=== PATIENT | male | born 1990 | race Caucasian/White ===

== ENCOUNTER 2020-09-26 00:29 | Inpatient (IN) | payer OTHER, SELFPAY ==
[2020-09-26 01:04] LABS: pH, Arterial 7.05 (7.35-7.45)
[2020-09-26] MEDS ORDERED: Dextrose 5% in Water 1,000 ML IV PRN (01:04)
[2020-09-26] MEDS ORDERED: Insulin Regular 300 UNITS/3 ML VIAL SC PRN (01:04)
[2020-09-26] MEDS ORDERED: hydrALAZINE 20 MG/ML VIAL SLOW IVP PRN (01:04)
[2020-09-26] MEDS ORDERED: Ondansetron PF 4 MG/2 ML Vial IVP PRN (01:04)
[2020-09-26 01:05] LABS: CO2 Tension 71.9 mmHg (35.0-45.0); O2 Tension (PaO2), arterial 78.2 mmHg (80.0-100.0)
[2020-09-26 01:06] LABS: Actual Bicarbonate (HCO3a) 19.4 mEq/L (22-28); Base Excess (BEa) -12.6 mEq/L (-2.0 to +3.0); Carboxyhemoglobin (COHb) 0.1 gm% (0.0-3.0); Hemoglobin (Hb) 16.7 g/dL (14.0-18.0); Potassium - ABG Lab 3.24 mmol/L (3.70-5.30)
[2020-09-26 01:07] LABS: ALV-art Gradient 544.925 mmHg (0-20); Analyzer IN Cardio ER; Calcium, Ionized (arterial) 1.15 mmol/L (1.12-1.30); Puncture Site RRA
[2020-09-26 01:08] LABS: #Eosinphils 0.1 thou/uL (0.0-0.7); #Lymphocytes 0.8 thou/uL (1.20-3.40); #Monocytes 0.5 thou/uL (0.11-0.59); #Neutrophils 5.7 thou/uL (1.40-6.50); %Basophils 0.3 % (0.0-1.0); %Eosinophils 0.9 % (0.0-10.0); %Lymphocytes 11.6 % (21.0-51.0); %Monocytes 7.3 % (0.0-10.0); %Neutrophils 79.8 % (42.0-75.0); Hemoglobin 15.9 g/dL (14.0-18.0); Mean Corpuscular Hemoglobin 28.5 pg (27.0-31.0); Mean Corpuscular Volume 86.4 fL (78.0-98.0); Mean Platelet Volume 6.4 fL (7.4-10.4); Platelet Count 246 thou/uL (130-400); RBC Distribution Width 11.9 % (11.5-14.5); Red Blood Cell (RBC) Count 5.58 mill/uL (4.70-6.10); White Blood Cell (WBC) Count 7.1 thou/uL (4.8-10.8)
[2020-09-26] MEDS ORDERED: Sodium Bicarb 50 MEQ/50 ML Abboject 8.4% SYRINGE ONE ×3 (01:10→03:18)
[2020-09-26 01:12] LABS: Prothrombin Time 23.2 sec (12.0-14.7)
[2020-09-26] MEDS ORDERED: Sodium Chloride 0.9% 1,000 ML IV SCH ×2 (01:15→03:15)
[2020-09-26 01:23] LABS: Magnesium 3.7 mg/dL (1.6-2.6); Phosphorus 7.1 mg/dL (2.3-4.7)
[2020-09-26 01:25] LABS: ALT (SGPT) 126 U/L (8-55); AST (SGOT) 202 U/L (5-34); Albumin 3.4 g/dL (3.5-5.0); Alkaline Phosphatase 133 U/L (40-110); Anion Gap 14 mmol/L (10-20); BUN (Urea Nitrogen) 26 mg/dL (8.9-20.6); Calc. Creatinine Clearance 0 mL/min (70-130); Calcium 7.3 mg/dL (7.8-10.44); Carbon Dioxide 20 mmol/L (22-29); Chloride 101 mmol/L (98-107); Globulin 2.8 g/dL (2.4-3.5); Glucose 77 mg/dL (70-105); Potassium 3.2 mmol/L (3.5-5.1); Protein, Total 6.2 g/dL (6.0-8.3); Sodium 132 mmol/L (136-145)
[2020-09-26 02:12] LABS: CKMB 81.1 ng/mL (0-6.6)
[2020-09-26] MEDS ORDERED: Potassium Chloride 40 MEQ in Premix Bag 1 BAG IVPB SCH (02:15)
[2020-09-26] MEDS ORDERED: EPINEPHrine 4 MG in Dextrose 5% in Water 250 ML IV SCH (02:15)
[2020-09-26 02:22] LABS: SARS-CoV-2 NAA Rapid Test Not Detected (NotDetected)
[2020-09-26 03:05] LABS: Actual Bicarbonate (HCO3a) 19.7 mEq/L (22-28); Base Excess (BEa) -10.1 mEq/L (-2.0 to +3.0); CO2 Tension 59.4 mmHg (35.0-45.0); Calcium, Ionized (arterial) 1.16 mmol/L (1.12-1.30); Carboxyhemoglobin (COHb) 0.3 gm% (0.0-3.0); Hemoglobin (Hb) 15.7 g/dL (14.0-18.0); O2 Tension (PaO2), arterial 72.2 mmHg (80.0-100.0); Potassium - ABG Lab 3.34 mmol/L (3.70-5.30)
[2020-09-26 03:07] LABS: Puncture Site LFA; pH, Arterial 7.14 (7.35-7.45)
[2020-09-26] MEDS: Sodium Chloride 0.9% 1,000 ML IV SCH ×2 (03:14→04:09)
[2020-09-26] MEDS ORDERED: Sodium Bicarb 50 MEQ/50 ML Abboject 8.4% SYRINGE IVP SCH ×2 (03:15→03:30)
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
[2020-09-26 03:25] VITALS: BMI 13.6
[2020-09-26] MEDS: Sodium Bicarb 50 MEQ/50 ML Abboject 8.4% SYRINGE ONE (03:34)
[2020-09-26] MEDS ORDERED: Levothyroxine Sodium 400 MCG in Sodium Chloride 0.9% 100 ML IVPB SCH (03:45)
[2020-09-26 04:06] LABS: Bacteria/HPF None Seen HPF (None Seen); Bilirubin Negative (Negative); Blood, Urine 3+ (Negative); Clarity Turbid (Clear); Glucose, Urine (Dipstick) Normal (Negative); Ketone, Urine Negative (Negative); Leukocyte Negative Leu/uL (Negative); Nitrite Negative (Negative); Protein, Urine (Dipstick) 30 mg/dL (Neg-Trace); Squamous Epithelial 0-3 HPF (0-3); Urobilinogen Normal mg/dL (Less than 2); pH, Urine 5.5 (5.0-9.0)
[2020-09-26 04:08] LABS: Urine Culture Reflex Yes Yes
[2020-09-26 04:21] LABS: Amphetamine Detected (NotDetected); Barbiturates Screen Not Detected (NotDetected); Benzodiazepine Screen Not Detected (NotDetected); Cocaine Metabolite Screen Not Detected (NotDetected); Medtox Control Line Valid? VALID (VALID); Medtox Reader # READER 4; Methadone Not Detected (NotDetected); Methamphetamine Detected (NotDetected); Opiate Screen Not Detected (NotDetected); Oxycodone Screen Not Detected (NotDetected); Phencyclidine (PCP) Not Detected (NotDetected); THC/Cannabinoid Screen Detected (NotDetected); Tricyclic Screen Not Detected (NotDetected)
[2020-09-26] MEDS: Dextrose 50% Abboject 50 ML SYRINGE SLOW IVP PRN ×2 (04:31→05:10)
[2020-09-26 05:14] LABS: #Lymphocytes 0.6 thou/uL (1.20-3.40); #Monocytes 0.9 thou/uL (0.11-0.59); #Neutrophils 6.6 thou/uL (1.40-6.50); %Basophils 0.2 % (0.0-1.0); %Eosinophils 0.3 % (0.0-10.0); %Lymphocytes 7.6 % (21.0-51.0); %Monocytes 10.5 % (0.0-10.0); %Neutrophils 81.5 % (42.0-75.0); Hemoglobin 13.5 g/dL (14.0-18.0); Mean Corpuscular HGB CONC 33.1 g/dL (32.0-36.0); Mean Corpuscular Hemoglobin 28.6 pg (27.0-31.0); Mean Corpuscular Volume 86.2 fL (78.0-98.0); Mean Platelet Volume 6.7 fL (7.4-10.4); Platelet Count 152 thou/uL (130-400); RBC Distribution Width 11.8 % (11.5-14.5); Red Blood Cell (RBC) Count 4.74 mill/uL (4.70-6.10); White Blood Cell (WBC) Count 8.1 thou/uL (4.8-10.8)
[2020-09-26] MEDS ORDERED: Hydrocortisone Sod Succ/PF 100 mg/2 ml Vial IVP SCH ×2 (05:15→12:00)
[2020-09-26 05:27] LABS: Lactic Acid 2.4 mmol/L (0.5-2.2)
[2020-09-26] MEDS: Dextrose 5 % And 0.9 % NaCl 1,000 ML IV SCH ×2 (05:30→12:00)
[2020-09-26 05:39] LABS: ALT (SGPT) 108 U/L (8-55); AST (SGOT) 202 U/L (5-34); Albumin 2.8 g/dL (3.5-5.0); Alkaline Phosphatase 75 U/L (40-110); Anion Gap 9 mmol/L (10-20); BUN (Urea Nitrogen) 25 mg/dL (8.9-20.6); Calc. Creatinine Clearance 29 mL/min (70-130); Calcium 6.7 mg/dL (7.8-10.44); Carbon Dioxide 27 mmol/L (22-29); Chloride 107 mmol/L (98-107); Globulin 2.1 g/dL (2.4-3.5); Glucose 74 mg/dL (70-105); Phosphorus 4.1 mg/dL (2.3-4.7); Potassium 3.1 mmol/L (3.5-5.1); Protein, Total 4.9 g/dL (6.0-8.3); Sodium 140 mmol/L (136-145)
[2020-09-26 05:56] LABS: Troponin I 70.095 ng/mL (< 0.028)
[2020-09-26] MEDS ORDERED: Lactated Ringer's 1,000 ML IV SCH (06:15)
[2020-09-26] MEDS: Norepinephrine 8 MG/0.9% NS 250 ML IVPB SCH ×2 (06:23→11:19)
--- NOTE | 2020-09-26 07:47 | RAD ---
EXAM: CHEST ONE VIEW HISTORY: Evaluation of endotracheal tube and nasogastric tube placement. COMPARISON: Study obtained at [facility] on 09/25/2020 FINDINGS: Endotracheal tube remains in place overlying the T3-4 level and above the level of the sunita. Nasoga stric tube is also stable in position with tip overlying expected location of the gastric fundus. There are now increased parenchymal opacities involving the midlung zones and each lung base greater on the right with could be related to pneumonia or aspiration pneumonitis. There is suggestion of a small left pleural effusion. No other interval change. IMPRESSION: 1. Parenchymal airspace opacities within the lungs bilaterally which have increased compared to prior study especially on the right. These findings could be related to pneumonia or aspiration pneumonitis and/or atelectasis. 2. Suggestion of small left pleural effusion. 3. Endotracheal tube and nasogastric tube in place.
[2020-09-26] MEDS ORDERED: Famotidine/PF 20 mg/2ml Vial SLOW IVP SCH (09:00)
[2020-09-26 09:07] LABS: Hemoglobin 13.7 g/dL (14.0-18.0); Mean Corpuscular HGB CONC 32.2 g/dL (32.0-36.0); Mean Corpuscular Hemoglobin 28.1 pg (27.0-31.0); Mean Corpuscular Volume 87.3 fL (78.0-98.0); Mean Platelet Volume 6.8 fL (7.4-10.4); Platelet Count 132 thou/uL (130-400); Red Blood Cell (RBC) Count 4.87 mill/uL (4.70-6.10); White Blood Cell (WBC) Count 16.6 thou/uL (4.8-10.8)
[2020-09-26 09:36] LABS: Actual Bicarbonate (HCO3a) 23.3 mEq/L (22-28); Base Excess (BEa) -6.9 mEq/L (-2.0 to +3.0); Calcium, Ionized (arterial) 1.04 mmol/L (1.12-1.30); Carboxyhemoglobin (COHb) 0.3 gm% (0.0-3.0); Hemoglobin (Hb) 14.3 g/dL (14.0-18.0); Potassium - ABG Lab 3.52 mmol/L (3.70-5.30)
[2020-09-26 09:37] LABS: pH, Arterial 7.15 (7.35-7.45)
[2020-09-26 09:38] LABS: O2 Tension (PaO2), arterial 34.3 mmHg (80.0-100.0)
[2020-09-26 09:39] LABS: Puncture Site RRA
[2020-09-26 09:53] LABS: Band 44 % (5-11); Lymphocytes 6 % (21-51); MDiff Complete? YES; Metamyelocyte 8 % (0-0); Monocytes 12 % (0-10); Neutrophil 30 % (42-75); Platelet Morphology Comment Appears Adequate; RBC Morphology Normal; Reflex for Review?? YES; Vacuoles SLIGHT
[2020-09-26 10:00] LABS: Anion Gap 15 mmol/L (10-20); BUN (Urea Nitrogen) 25 mg/dL (8.9-20.6); Calc. Creatinine Clearance 32 mL/min (70-130); Calcium 6.9 mg/dL (7.8-10.44); Carbon Dioxide 20 mmol/L (22-29); Chloride 110 mmol/L (98-107); Glucose 91 mg/dL (70-105); Magnesium 2.8 mg/dL (1.6-2.6); Phosphorus 5.2 mg/dL (2.3-4.7); Potassium 3.5 mmol/L (3.5-5.1); Sodium 141 mmol/L (136-145)
[2020-09-26] MEDS ORDERED: Calcium Chloride 1 GM/10 ML Abboject SYRINGE IVP SCH (10:45)
[2020-09-26] MEDS ORDERED: Albumin 5% 500 ML ONE (10:52)
--- NOTE | 2020-09-26 11:16 | RAD ---
Exam: Chest one view HISTORY:Left central line placement Comparison: 09/26/2020 FINDINGS: Lines and tubes: Endotracheal tube at the level clavicles. Left sided subclavian vascular catheter is presumed to be in the superior vena cava. Nasogastric tube extends beyond the diaphragm. Cardiac silhouette: Normal Aorta: Unremarkable Pulmonary vessels: Small bilateral effusions Costophrenic angles: Clear LUNGS: Right basal lung parenchymal opacities, increased since the previous exam. Pneumothorax: None Osseous abnormalities: None IMPRESSION: 1. Improved aeration of the lung parenchyma. Bibasilar pleural and parenchymal changes do remain.
--- NOTE | 2020-09-26 13:14 | NM ---
NUCLEAR MEDICINE BRAIN EXAMINATION/CEREBRAL BLOOD FLOW STUDY HISTORY: Clinical brain COMPARISON: CT brain 09/25/2020 TECHNIQUE: A nuclear medicine cerebral blood flow study was performed after administration of 29.1mCi of technetium 99m HMPAO. Angiographic and delayed phase images were performed. FINDINGS: There is lack of intracranial flow on the angiographic and delayed phase images. IMPRESSION: Findings are consistent with brain
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
[2020-09-27] MEDS ORDERED: Famotidine/PF 20 mg/2ml Vial SLOW IVP SCH (09:00)
== END 2020-09-26 14:38 | disposition expired | DRG 91 ==
LOC: ERS 00:29 → IMCU/EMU 01:04
PROVIDERS: ADMIT Specialist; ATTEND Specialist
PROC: 02HV33Z Insertion of Infusion Device into Superior Vena Cava, Percutaneous Approach (ICD-10-PCS; principal; 2020-09-26)
PROC: 04HY32Z Insertion of Monitoring Device into Lower Artery, Percutaneous Approach (ICD-10-PCS; 2020-09-26)
DX: G93.1 Anoxic brain damage, not elsewhere classified (principal); J69.0 Pneumonitis due to inhalation of food and vomit; Z66 Do not resuscitate; Z20.822 Contact with and (suspected) exposure to COVID-19; I46.9 Cardiac arrest, cause unspecified; S06.9X9S Unspecified intracranial injury with loss of consciousness of unspecified duration, sequela; V03.90XS Pedestrian on foot injured in collision with car, pick-up truck or van, unspecified whether traffic or nontraffic accident, sequela
CPT/HCPCS: 31624; 36415; 36416; 36600; 71045; 78610; 80053; 80306; 80307; 81001; 82533; 82553; 82805; 83605; 83735; 84100; 84484; 85025; 85060; 85610; 85730; 86850; 86900; 86901; 87086; 94002; 94003; 94640; 96365; 96368; 96374; A9521; G0390; J0171; J1720; J3480; J3490; J7070; J7620; P9045; S0028; U0002

== ENCOUNTER 2020-09-26 14:38 | Day surgery (SDC) | payer OTHER ==
[2020-09-26 15:36] LABS: CO2 Tension 45.8 mmHg (35.0-45.0); Calcium, Ionized (arterial) 1.11 mmol/L (1.12-1.30); Carboxyhemoglobin (COHb) 0.3 gm% (0.0-3.0); Hemoglobin (Hb) 12.9 g/dL (14.0-18.0); O2 Tension (PaO2), arterial 267.4 mmHg (80.0-100.0); Potassium - ABG Lab 4.05 mmol/L (3.70-5.30); pH, Arterial 7.26 (7.35-7.45)
[2020-09-26 15:37] LABS: Puncture Site Arterial Line
[2020-09-26] MEDS ORDERED: Phytonadione 10 MG/ML AMP SLOW IVP SCH (16:30)
[2020-09-26] MEDS ORDERED: Dextrose 5 %-0.45 % NaCl 1,000 ML IV SCH (16:30)
[2020-09-26] MEDS ORDERED: Hydrocortisone Sod Succ/PF 500 mg/4 ml Vial SLOW IVP SCH (16:30)
[2020-09-26] MEDS ORDERED: Norepinephrine 8 MG/0.9% NS 250 ML IVPB SCH (16:30)
[2020-09-26] MEDS: Vasopressin 20 UNIT, Admixture Fee 1 EACH in Sodium Chloride 0.9% 50 ML IV SCH (16:46)
[2020-09-26 17:28] VITALS: BMI 29.9
[2020-09-26] MEDS: Piperacillin/Tazobactam 3.375 GM in Sodium Chloride 0.9% 100 ML IVPB SCH ×2 (17:40→23:34)
--- NOTE | 2020-09-26 18:03 | RAD ---
Chest AP view INDICATION: History of pneumonia COMPARISON: September 26, 2020 chest radiograph at 10:42 AM FINDINGS: Lungs: There is persistent bilateral lower lobe airspace disease. Patient remains intubated. Cardiac silhouette: There is accentuation of the heart size due to the same technique. Pulmonary vasculature: Normal Pleural spaces: No pleural effusion or pneumothorax is demonstrated. Upper abdomen: Gastric catheter is unchanged. Osseous structures: No acute osseous abnormality. Additional findings: Left subclavian central venous catheter is unchanged in position. IMPRESSION: Stable bilateral lower lobe airspace disease suspicious for pneumonia or aspiration. Stable tubes and lines. No pneumothorax.
[2020-09-26 18:39] LABS: Bilirubin Negative (Negative); Blood, Urine 3+ (Negative); Clarity Turbid (Clear); Glucose, Urine (Dipstick) Normal (Negative); Ketone, Urine Negative (Negative); Leukocyte Negative Leu/uL (Negative); Nitrite Negative (Negative); Protein, Urine (Dipstick) 20 mg/dL (Neg-Trace); Specific Gravity, Urine 1.019 (1.002-1.036); Squamous Epithelial 0-3 HPF (0-3); Urobilinogen Normal mg/dL (Less than 2); WBC/HPF 0-3 HPF (0-3)
[2020-09-26] MEDS: Phytonadione 10 MG in Sodium Chloride 0.9% 50 ML IVPB SCH ×2 (18:45→22:45)
[2020-09-26 18:48] LABS: INR-International Normal Ratio 1.7; PTT 35.1 sec (22.9-36.1); Prothrombin Time 20.7 sec (12.0-14.7)
[2020-09-26 18:55] LABS: Bacteria/HPF Rare-Few HPF (None Seen)
[2020-09-26 19:11] LABS: Hemoglobin A1c 5.2 % (4.0-6.0); Lactic Acid 2.5 mmol/L (0.5-2.2)
[2020-09-26 19:12] LABS: Phosphorus 5.3 mg/dL (2.3-4.7)
[2020-09-26 19:15] LABS: Bilirubin, Direct 0.3 mg/dL (0.1-0.3); Bilirubin, Total 0.5 mg/dL (0.2-1.2)
[2020-09-26 19:18] LABS: ALT (SGPT) 97 U/L (8-55); AST (SGOT) 154 U/L (5-34); Albumin 2.9 g/dL (3.5-5.0); Alkaline Phosphatase 61 U/L (40-110); Anion Gap 11 mmol/L (10-20); BUN (Urea Nitrogen) 20 mg/dL (8.9-20.6); Bilirubin, Total 0.5 mg/dL (0.2-1.2); Calc. Creatinine Clearance 97 mL/min (70-130); Calcium 6.9 mg/dL (7.8-10.44); Carbon Dioxide 20 mmol/L (22-29); Chloride 115 mmol/L (98-107); Gamma GT (GGT) 70 U/L (12-64); Glucose 183 mg/dL (70-105); Lipase 8 U/L (8-78); Magnesium 2.4 mg/dL (1.6-2.6); Potassium 4.1 mmol/L (3.5-5.1); Protein, Total 4.9 g/dL (6.0-8.3); Sodium 142 mmol/L (136-145)
[2020-09-26 19:24] LABS: Critical Call Chem Troponin I RESULT DECREASING
[2020-09-26 19:26] LABS: Band 44 % (5-11); Hemoglobin 11.9 g/dL (14.0-18.0); Lymphocytes 10 % (21-51); MDiff Complete? YES; Mean Corpuscular HGB CONC 32.8 g/dL (32.0-36.0); Mean Corpuscular Hemoglobin 28.5 pg (27.0-31.0); Mean Corpuscular Volume 86.8 fL (78.0-98.0); Mean Platelet Volume 7.3 fL (7.4-10.4); Monocytes 2 % (0-10); Myelocyte 8 % (0-0); Neutrophil 34 % (42-75); Platelet Count 100 thou/uL (130-400); Platelet Morphology Comment Appears Decreased; RBC Distribution Width 11.9 % (11.5-14.5); RBC Morphology Normal; Reactive Lymphocytes 2 % (0-10); Red Blood Cell (RBC) Count 4.18 mill/uL (4.70-6.10); White Blood Cell (WBC) Count 14.3 thou/uL (4.8-10.8)
[2020-09-26 19:30] LABS: CK (CPK) 7672 U/L (30-200)
[2020-09-26] MEDS: Albuterol Sulfate 2.5 mg/0.5 ml Neb NEB SCH ×2 (19:30→22:30)
[2020-09-26 19:44] LABS: CKMB 55.7 ng/mL (0-6.6); Critical Call CKMB RESULT DECREASING
[2020-09-26] MEDS ORDERED: Albumin 25% 25 GM/100 ML BOT IVPB SCH (20:30)
[2020-09-26] MEDS: Levothyroxine Sodium 400 MCG in Sodium Chloride 0.9% 100 ML IVPB SCH (20:47)
[2020-09-26] MEDS: Sodium Chloride 0.45% 1,000 ML IV SCH (20:48)
[2020-09-26] MEDS ORDERED: Hydrocortisone Sod Succ/PF 300 MG in Sodium Chloride 0.9% 50 ML IVPB SCH (21:00)
[2020-09-26] MEDS ORDERED: Hydrocortisone Sod Succ/PF 100 mg/2 ml Vial IVP SCH (22:00)
--- NOTE | 2020-09-26 22:54 | RAD ---
Chest AP view INDICATION: Pneumonia COMPARISON: September 26, 2020 at 5:15 PM FINDINGS: Lungs: Bilateral lower lobe airspace opacities persist Cardiac silhouette: The cardiomediastinal silhouette appears within normal limits. Pulmonary vasculature: Normal Pleural spaces: No pleural effusion or pneumothorax is demonstrated. Upper abdomen: No abnormality seen. Osseous structures: No acute osseous abnormality. Additional findings: ET tube, left subclavian central venous catheter and gastric catheter are uncha nged. IMPRESSION: Stable bilateral lower lobe airspace disease. Stable tubes and lines.
[2020-09-26 23:26] LABS: PTT 39.1 sec (22.9-36.1); Prothrombin Time 23.1 sec (12.0-14.7)
[2020-09-26 23:58] LABS: Bilirubin, Direct 0.4 mg/dL (0.1-0.3); Bilirubin, Total 0.6 mg/dL (0.2-1.2)
[2020-09-27] LABS: White Blood Cell (WBC) Count 13.9 thou/uL (4.8-10.8)
[2020-09-27 00:01] LABS: ALT (SGPT) 86 U/L (8-55); AST (SGOT) 133 U/L (5-34); Albumin 3.6 g/dL (3.5-5.0); Alkaline Phosphatase 54 U/L (40-110); Anion Gap 10 mmol/L (10-20); BUN (Urea Nitrogen) 22 mg/dL (8.9-20.6); Bilirubin, Total 0.6 mg/dL (0.2-1.2); Calc. Creatinine Clearance 89 mL/min (70-130); Calcium 6.9 mg/dL (7.8-10.44); Carbon Dioxide 23 mmol/L (22-29); Chloride 114 mmol/L (98-107); Globulin 1.8 g/dL (2.4-3.5); Glucose 186 mg/dL (70-105); Lipase 5 U/L (8-78); Magnesium 2.3 mg/dL (1.6-2.6); Phosphorus 4.6 mg/dL (2.3-4.7); Potassium 4.1 mmol/L (3.5-5.1); Protein, Total 5.4 g/dL (6.0-8.3); Sodium 143 mmol/L (136-145)
[2020-09-27 00:11] LABS: Band 19 % (5-11); Hemoglobin 11.1 g/dL (14.0-18.0); Hypochromia SLIGHT = 6-15 cells (100X) (0-5/hpf); Lymphocytes 8 % (21-51); MDiff Complete? YES; Mean Corpuscular HGB CONC 32.8 g/dL (32.0-36.0); Mean Corpuscular Hemoglobin 28.5 pg (27.0-31.0); Mean Corpuscular Volume 86.8 fL (78.0-98.0); Mean Platelet Volume 7.6 fL (7.4-10.4); Monocytes 16 % (0-10); Neutrophil 57 % (42-75); Platelet Count 99 thou/uL (130-400); Platelet Morphology Comment Appears Decreased; RBC Distribution Width 11.8 % (11.5-14.5); Red Blood Cell (RBC) Count 3.88 mill/uL (4.70-6.10)
[2020-09-27 00:15] LABS: CK (CPK) 7586 U/L (30-200); Critical Call Chem Troponin I RESULT DECREASING
[2020-09-27 00:35] LABS: CKMB 38.3 ng/mL (0-6.6); Critical Call CKMB RESULT DECREASING
[2020-09-27 02:24] VITALS: BP 114/68
[2020-09-27] MEDS: Albuterol Sulfate 2.5 mg/0.5 ml Neb NEB SCH ×6 (02:24→23:02)
[2020-09-27] MEDS: Sodium Chloride 0.45% 1,000 ML IV SCH ×3 (03:27→15:41)
[2020-09-27] MEDS: Levothyroxine Sodium 400 MCG in Sodium Chloride 0.9% 100 ML IVPB SCH ×3 (03:58→18:12)
[2020-09-27] MEDS ORDERED: Albumin 25% 25 GM/100 ML BOT IVPB SCH (04:30)
[2020-09-27 05:16] LABS: PTT 35.2 sec (22.9-36.1)
[2020-09-27 05:17] LABS: Hemoglobin 10.2 g/dL (14.0-18.0); INR-International Normal Ratio 1.8; Mean Corpuscular HGB CONC 32.1 g/dL (32.0-36.0); Mean Corpuscular Hemoglobin 27.7 pg (27.0-31.0); Mean Corpuscular Volume 86.4 fL (78.0-98.0); Mean Platelet Volume 7.5 fL (7.4-10.4); Platelet Count 104 thou/uL (130-400); Prothrombin Time 21.4 sec (12.0-14.7); RBC Distribution Width 11.8 % (11.5-14.5); Red Blood Cell (RBC) Count 3.67 mill/uL (4.70-6.10); White Blood Cell (WBC) Count 13.5 thou/uL (4.8-10.8)
[2020-09-27 05:25] LABS: Lactic Acid 3.8 mmol/L (0.5-2.2)
[2020-09-27 05:26] LABS: Band 47 % (5-11); Hypochromia SLIGHT = 6-15 cells (100X) (0-5/hpf); Lymphocytes 5 % (21-51); MDiff Complete? YES; Metamyelocyte 2 % (0-0); Monocytes 4 % (0-10); Neutrophil 42 % (42-75); Platelet Morphology Comment Appears Decreased
[2020-09-27 05:30] LABS: ALT (SGPT) 83 U/L (8-55); AST (SGOT) 130 U/L (5-34); Albumin 3.4 g/dL (3.5-5.0); Alkaline Phosphatase 56 U/L (40-110); Anion Gap 13 mmol/L (10-20); BUN (Urea Nitrogen) 21 mg/dL (8.9-20.6); Bilirubin, Direct 0.5 mg/dL (0.1-0.3); Bilirubin, Total 0.7 mg/dL (0.2-1.2); Calc. Creatinine Clearance 89 mL/min (70-130); Calcium 7.1 mg/dL (7.8-10.44); Carbon Dioxide 20 mmol/L (22-29); Chloride 115 mmol/L (98-107); Globulin 1.8 g/dL (2.4-3.5); Glucose 245 mg/dL (70-105); Lipase 5 U/L (8-78); Magnesium 2.3 mg/dL (1.6-2.6); Phosphorus 3.7 mg/dL (2.3-4.7); Potassium 3.7 mmol/L (3.5-5.1); Protein, Total 5.2 g/dL (6.0-8.3); Sodium 144 mmol/L (136-145)
[2020-09-27 05:37] LABS: CKMB 39.1 ng/mL (0-6.6)
[2020-09-27] MEDS: Hydrocortisone Sod Succ/PF 100 mg/2 ml Vial IVP SCH ×3 (05:41→22:32)
[2020-09-27] MEDS: Piperacillin/Tazobactam 3.375 GM in Sodium Chloride 0.9% 100 ML IVPB SCH ×3 (05:41→18:08)
[2020-09-27 05:43] LABS: CK (CPK) 7591 U/L (30-200)
[2020-09-27 05:45] LABS: Bacteria/HPF None Seen HPF (None Seen); Bilirubin Negative (Negative); Blood, Urine 2+ (Negative); Clarity Turbid (Clear); Glucose, Urine (Dipstick) 70 mg/dL (Negative); Ketone, Urine Negative (Negative); Leukocyte Negative Leu/uL (Negative); Nitrite Negative (Negative); Protein, Urine (Dipstick) Negative (Neg-Trace); RBC/HPF 0-3 HPF (0-3); Specific Gravity, Urine 1.009 (1.002-1.036); Squamous Epithelial None Seen HPF (0-3); Urobilinogen Normal mg/dL (Less than 2)
[2020-09-27] MEDS ORDERED: Insulin Regular 100 units/100 ml in NS IVPB SCH (06:00)
[2020-09-27 07:53] LABS: Actual Bicarbonate (HCO3a) 21.1 mEq/L (22-28); Base Excess (BEa) -4.4 mEq/L (-2.0 to +3.0); CO2 Tension 40.2 mmHg (35.0-45.0); Carboxyhemoglobin (COHb) 0.3 gm% (0.0-3.0); Hemoglobin (Hb) 10.3 g/dL (14.0-18.0); O2 Tension (PaO2), arterial 470.6 mmHg (80.0-100.0); Potassium - ABG Lab 3.63 mmol/L (3.70-5.30); pH, Arterial 7.34 (7.35-7.45)
[2020-09-27 07:55] LABS: Puncture Site Arterial Line
--- NOTE | 2020-09-27 08:33 | RAD ---
RADIOGRAPH CHEST 1 VIEW: DATE: 09/27/2020 TIME: 4:40 AM HISTORY: 30-year-old male with "pneumonia" COMPARISON: none FINDINGS: Current positioning is prone. Mild airspace densities at the medial bilateral lung bases are unchange d. No consolidation or pulmonary edema in the rest of the visualized lung dias. No pulmonary edema. No cardiomegaly. Endotracheal tube, esophagogastric tube, and left subclavian central venous c atheter, remain. Allowing for positional differences, there is probably no interval change. IMPRESSION: No interval change in Small mild pulmonary densities at the medial bilateral lung bases.
[2020-09-27] MEDS: Phenylephrine 40 MG in Sodium Chloride 0.9% 250 ML 250 ML IVPB SCH ×2 (08:50→18:12)
[2020-09-27 11:42] LABS: Lactic Acid 3.7 mmol/L (0.5-2.2)
--- NOTE | 2020-09-27 11:46 | RAD ---
RADIOGRAPH CHEST 1 VIEW: DATE: 09/27/2020 TIME: 10:36 AM HISTORY: 30-year-old male with pneumonia. Status post intubation. COMPARISON: 09/26/2020 FINDINGS: New ETT with distal tip partially 7.5 to 8 cm superior to sunita, at the level of clavicular heads. Supine positioning makes this relatively insensitive for pneumothorax detection. Esophagogastric tube remains. Left subclavian central venous catheter remains. No cardiomegaly. Upper lung zones remain clear. The moderately large alveolar infiltrates involving the lower third of the right lung, has now almost completely cleared. There has been improvement in the mild or infiltrate in the left lower lung zone, with mild residual densities remaining. IMPRESSION: 1) status post intubation with endotracheal tube in the upper thoracic trachea. 2) significant improvement in aeration of the bilateral lower lung zones. Mild residual infiltrate on the left remains.
[2020-09-27 11:48] LABS: Bilirubin, Direct 0.5 mg/dL (0.1-0.3); Bilirubin, Total 0.7 mg/dL (0.2-1.2)
[2020-09-27 11:56] LABS: ALT (SGPT) 77 U/L (8-55); AST (SGOT) 124 U/L (5-34); Albumin 3.4 g/dL (3.5-5.0); Alkaline Phosphatase 55 U/L (40-110); Anion Gap 12 mmol/L (10-20); BUN (Urea Nitrogen) 22 mg/dL (8.9-20.6); Bilirubin, Total 0.7 mg/dL (0.2-1.2); CK (CPK) Greater than 4000 U/L (30-200); CKMB 32.9 ng/mL (0-6.6); Calc. Creatinine Clearance 95 mL/min (70-130); Calcium 7.5 mg/dL (7.8-10.44); Carbon Dioxide 19 mmol/L (22-29); Chloride 115 mmol/L (98-107); Critical Call CKMB RESULT DECREASING; Critical Call Chem Troponin I RESULT DECREASING; Globulin 1.8 g/dL (2.4-3.5); Glucose 210 mg/dL (70-105); Lipase Less than 4 U/L (8-78); Magnesium 2.2 mg/dL (1.6-2.6); Phosphorus 2.3 mg/dL (2.3-4.7); Potassium 3.2 mmol/L (3.5-5.1); Protein, Total 5.2 g/dL (6.0-8.3); Sodium 143 mmol/L (136-145)
[2020-09-27 12:10] LABS: Hemoglobin 9.5 g/dL (14.0-18.0); Mean Corpuscular HGB CONC 32.2 g/dL (32.0-36.0); Mean Corpuscular Hemoglobin 28.4 pg (27.0-31.0); Mean Corpuscular Volume 88.2 fL (78.0-98.0); Mean Platelet Volume 7.8 fL (7.4-10.4); Platelet Count 93 thou/uL (130-400); RBC Distribution Width 11.8 % (11.5-14.5); Red Blood Cell (RBC) Count 3.36 mill/uL (4.70-6.10); White Blood Cell (WBC) Count 10.2 thou/uL (4.8-10.8)
[2020-09-27 12:13] LABS: INR-International Normal Ratio 1.8; PTT 34.3 sec (22.9-36.1); Prothrombin Time 21.7 sec (12.0-14.7)
[2020-09-27 12:30] LABS: Band 48 % (5-11); Lymphocytes 6 % (21-51); MDiff Complete? YES; Metamyelocyte 12 % (0-0); Monocytes 4 % (0-10); Myelocyte 5 % (0-0); Neutrophil 25 % (42-75); Platelet Morphology Comment Appears Decreased; RBC Morphology Normal
[2020-09-27] MEDS ORDERED: Magnesium 2 GM/50 ML 2 GM in Premix Bag 1 BAG IVPB SCH (14:15)
[2020-09-27] MEDS ORDERED: Potassium Phosphate 20 MMOL in Sodium Chloride 0.9% 250 ML 250 ML IVPB SCH (14:15)
[2020-09-27] MEDS ORDERED: Potassium Chloride 20 MEQ in Premix Bag 1 BAG IVPB SCH (14:15)
[2020-09-27] MEDS ORDERED: Calcium Gluconate 4.6 MEQ in Sodium Chloride 0.9% 100 ML IVPB SCH ×2 (14:15→19:45)
--- NOTE | 2020-09-27 14:59 | CT ---
EXAM: CT of the chest without contrast CT of the abdomen and pelvis without contrast HISTORY: Organ donor COMPARISON: None TECHNIQUE: 1. Multiple contiguous axial images were obtained in a CT the chest without contrast. Coronal and sag ittal reformats were performed. 2. Multiple contiguous axial images were obtained and a CT of the abdomen and pelvis without contrast . Coronal and sagittal reformats were performed. FINDINGS: CT CHEST: HEART: Normal in size without focal cardiac abnormality MEDIASTINUM: No hilar or mediastinal lymphadenopathy. Evaluation of mediastinum is limited without IV contrast. An endotracheal tube is seen in good position above the sunita. LUNGS: No focal infiltrates, nodules, or masses. Bilateral dependent atelectasis. PLEURAL SPACE: No pneumothorax or pleural effusion. CHEST WALL SOFT TISSUES: There is a left subclavian central venous catheter with its tip in the super ior vena cava. CT ABDOMEN/PELVIS: Evaluation of the solid organs is limited without IV contrast. ABDOMEN: LIVER: A subtle hypodense region adjacent to the falciform ligament may represent a small amount of f ocal fatty infiltration. BILE DUCTS: Normal caliber. GALLBLADDER: Distended without calcified gallstones. PANCREAS: within normal limits. SPLEEN: within normal limits. ADRENALS: within normal limits. KIDNEYS: within normal limits. PELVIS: REPRODUCTIVE ORGANS: No pelvic masses. URETERS: within normal limits. BLADDER: A Samuels catheter is seen in the urinary bladder. PERITONEUM: No ascites or free air, no fluid collection. BOWEL: Normal caliber. There is an NG tube in the stomach. The patient has a rectal tube. MESENTERY AND RETROPERITONEUM: No enlarged mesenteric or retroperitoneal lymph nodes. VESSELS: Normal. ABDOMINAL WALL: Right inguinal catheters are present. An IV is seen in the right upper extremity. OSSEOUS STRUCTURES: There is remote healed left clavicle fracture. No acute osseous abnormality. IMPRESSION: No significant acute intrathoracic or intra-abdominal/pelvic abnormality.
[2020-09-27] MEDS: Potassium Chloride 20 MEQ in Premix Bag 1 BAG IVPB SCH ×4 (15:19→20:52)
--- NOTE | 2020-09-27 15:57 | RAD ---
CHEST ONE VIEW: 09/27/20 HISTORY: Pneumonia. COMPARISON: Radiograph same day. FINDINGS: Left subclavian central venous catheter is similar. Endotracheal tube tip just above the clavicular l evel. Enteric tube tip low diaphragm out of field of view. Continued slight improvement of lung aeration. IMPRESSION: Continued slight improvement of lung aeration. POS: [facility]
[2020-09-27 16:09] LABS: Actual Bicarbonate (HCO3a) 20.5 mEq/L (22-28); Base Excess (BEa) -3.7 mEq/L (-2.0 to +3.0); CO2 Tension 33.9 mmHg (35.0-45.0); Calcium, Ionized (arterial) 1.17 mmol/L (1.12-1.30); Carboxyhemoglobin (COHb) 0.3 gm% (0.0-3.0); Hemoglobin (Hb) 10.1 g/dL (14.0-18.0); Potassium - ABG Lab 3.29 mmol/L (3.70-5.30)
[2020-09-27 16:11] LABS: O2 Tension (PaO2), arterial 507.4 mmHg (80.0-100.0)
[2020-09-27 16:12] LABS: Puncture Site Arterial Line
[2020-09-27 16:13] LABS: ALV-art Gradient 163.225 mmHg (0-20)
[2020-09-27 16:48] LABS: INR-International Normal Ratio 1.7; Prothrombin Time 20.6 sec (12.0-14.7)
[2020-09-27 16:49] LABS: PTT 35.1 sec (22.9-36.1)
[2020-09-27 16:56] LABS: Lactic Acid 2.5 mmol/L (0.5-2.2)
[2020-09-27] MEDS ORDERED: DOBUTamine 500 mg/250 ml 500 MG in Premix Bag 1 BAG IVPB SCH (17:00)
[2020-09-27 17:01] LABS: Bilirubin, Direct 0.5 mg/dL (0.1-0.3); Bilirubin, Total 0.7 mg/dL (0.2-1.2)
[2020-09-27 17:04] LABS: Critical Call Chem Troponin I RESULT DECREASING
[2020-09-27 17:14] LABS: CK (CPK) 7277 U/L (30-200)
[2020-09-27 17:31] LABS: ALT (SGPT) 80 U/L (8-55); AST (SGOT) 133 U/L (5-34); Albumin 3.2 g/dL (3.5-5.0); Alkaline Phosphatase 62 U/L (40-110); Anion Gap 12 mmol/L (10-20); BUN (Urea Nitrogen) 22 mg/dL (8.9-20.6); Bilirubin, Total 0.7 mg/dL (0.2-1.2); Calc. Creatinine Clearance 114 mL/min (70-130); Calcium 7.8 mg/dL (7.8-10.44); Carbon Dioxide 18 mmol/L (22-29); Chloride 119 mmol/L (98-107); Globulin 1.8 g/dL (2.4-3.5); Glucose 159 mg/dL (70-105); Lipase Less than 4 U/L (8-78); Magnesium 2.8 mg/dL (1.6-2.6); Phosphorus 2.9 mg/dL (2.3-4.7); Potassium 3.3 mmol/L (3.5-5.1); Sodium 146 mmol/L (136-145)
[2020-09-27 17:32] LABS: CKMB 36.5 ng/mL (0-6.6)
[2020-09-27 18:04] LABS: Band 59 % (5-11); Eosinophils 1 % (0-10); Hemoglobin 9.2 g/dL (14.0-18.0); Lymphocytes 15 % (21-51); MDiff Complete? YES; Mean Corpuscular HGB CONC 32.9 g/dL (32.0-36.0); Mean Corpuscular Hemoglobin 28.4 pg (27.0-31.0); Mean Corpuscular Volume 86.5 fL (78.0-98.0); Mean Platelet Volume 7.8 fL (7.4-10.4); Metamyelocyte 3 % (0-0); Monocytes 2 % (0-10); Myelocyte 2 % (0-0); Neutrophil 17 % (42-75); Platelet Count 100 thou/uL (130-400); Platelet Morphology Comment Appears Decreased; RBC Distribution Width 11.9 % (11.5-14.5); RBC Morphology Normal; Reactive Lymphocytes 1 % (0-10); Red Blood Cell (RBC) Count 3.24 mill/uL (4.70-6.10); White Blood Cell (WBC) Count 10.2 thou/uL (4.8-10.8)
[2020-09-27 19:56] LABS: Bilirubin Negative (Negative); Blood, Urine 2+ (Negative); Clarity Turbid (Clear); Glucose, Urine (Dipstick) Normal (Negative); Ketone, Urine Negative (Negative); Leukocyte Negative Leu/uL (Negative); Nitrite Negative (Negative); Protein, Urine (Dipstick) Negative (Neg-Trace); RBC/HPF 0-3 HPF (0-3); Specific Gravity, Urine 1.002 (1.002-1.036); Squamous Epithelial 0-3 HPF (0-3); Urobilinogen Normal mg/dL (Less than 2)
[2020-09-27 19:59] LABS: Bacteria/HPF 2+ HPF (None Seen)
--- NOTE | 2020-09-27 21:02 | EKG ---
Test Reason : Blood Pressure : / mmHG Vent. Rate : 113 BPM Atrial Rate : 113 BPM P-R Int : 126 ms QRS Dur : 090 ms QT Int : 300 ms P-R-T Axes : 072 087 064 degrees QTc Int : 411 ms Sinus tachycardia Otherwise normal ECG Confirmed by Danica DOLAN ([id number]) on 09/27/2020 9:02:09 PM Referred By: Confirmed By:Danica DOLAN
[2020-09-27 23:19] LABS: INR-International Normal Ratio 1.5; PTT 32.6 sec (22.9-36.1); Prothrombin Time 18.1 sec (12.0-14.7)
[2020-09-27 23:31] LABS: Lactic Acid 2.2 mmol/L (0.5-2.2)
[2020-09-27 23:32] LABS: Band 39 % (5-11); Lymphocytes 9 % (21-51); MDiff Complete? YES; Mean Corpuscular HGB CONC 33.5 g/dL (32.0-36.0); Mean Corpuscular Hemoglobin 28.8 pg (27.0-31.0); Mean Corpuscular Volume 85.9 fL (78.0-98.0); Mean Platelet Volume 7.6 fL (7.4-10.4); Monocytes 9 % (0-10); Neutrophil 43 % (42-75); Platelet Count 86 thou/uL (130-400); Platelet Morphology Comment Appears Decreased; RBC Distribution Width 11.9 % (11.5-14.5); Red Blood Cell (RBC) Count 3.14 mill/uL (4.70-6.10); White Blood Cell (WBC) Count 8.4 thou/uL (4.8-10.8)
[2020-09-27 23:35] LABS: Bilirubin, Direct 0.5 mg/dL (0.1-0.3); Bilirubin, Total 0.8 mg/dL (0.2-1.2)
[2020-09-27 23:40] LABS: ALT (SGPT) 79 U/L (8-55); AST (SGOT) 136 U/L (5-34); Albumin 3.3 g/dL (3.5-5.0); Alkaline Phosphatase 74 U/L (40-110); Anion Gap 11 mmol/L (10-20); BUN (Urea Nitrogen) 19 mg/dL (8.9-20.6); Bilirubin, Total 0.8 mg/dL (0.2-1.2); Calc. Creatinine Clearance 121 mL/min (70-130); Calcium 8.4 mg/dL (7.8-10.44); Carbon Dioxide 19 mmol/L (22-29); Chloride 123 mmol/L (98-107); Globulin 1.8 g/dL (2.4-3.5); Glucose 161 mg/dL (70-105); Lipase Less than 4 U/L (8-78); Magnesium 2.5 mg/dL (1.6-2.6); Phosphorus 1.1 mg/dL (2.3-4.7); Potassium 2.9 mmol/L (3.5-5.1); Protein, Total 5.1 g/dL (6.0-8.3); Sodium 150 mmol/L (136-145)
[2020-09-27 23:48] LABS: CK (CPK) 6381 U/L (30-200)
[2020-09-27 23:50] LABS: CKMB 29.1 ng/mL (0-6.6)
[2020-09-27 23:51] LABS: Troponin I 1.443 ng/mL (< 0.028)
[2020-09-27] MEDS ORDERED: Potassium Phosphate 30 MMOL in Sodium Chloride 0.9% 250 ML 250 ML IVPB SCH (23:59)
[2020-09-28] MEDS: Piperacillin/Tazobactam 3.375 GM in Sodium Chloride 0.9% 100 ML IVPB SCH (00:08)
[2020-09-28] MEDS: Phenylephrine 40 MG in Sodium Chloride 0.9% 250 ML 250 ML IVPB SCH (00:56)
[2020-09-28] MEDS: Vasopressin 20 UNIT, Admixture Fee 1 EACH in Sodium Chloride 0.9% 50 ML IV SCH (00:56)
[2020-09-28] MEDS: Levothyroxine Sodium 400 MCG in Sodium Chloride 0.9% 100 ML IVPB SCH (00:56)
--- NOTE | 2020-09-28 07:14 | RAD ---
Portable frontal chest radiograph: 09/28/2020 COMPARISON: 09/27/2020 HISTORY: Pneumonia FINDINGS: Stable endotracheal tube, left-sided vascular catheter, and nasogastric tube. There is mild pulmonary vascular prominence. No pneumothorax noted. There is interstitial and alveolar opacity in bilateral perihilar regions and both lung bases, left g reater than right, more prominent than on the 09/27/2020 examination. IMPRESSION: Increasing interstitial and alveolar opacity in the lung bases, left greater than right. Stable lines and tubes.
== END 2020-09-28 02:11 | disposition short-term general hospital (02) ==
LOC: SDC 14:38 → IMCU/EMU 14:38 → SDC 09-28 02:11
DX: J18.9 Pneumonia, unspecified organism (principal); Z20.822 Contact with and (suspected) exposure to COVID-19
CPT/HCPCS: 31624; 36415; 36416; 71045; 71250; 74177; 80053; 81001; 82150; 82247; 82550; 82553; 82805; 82977; 83036; 83605; 83690; 83735; 84100; 84484; 85025; 85384; 85610; 85730; 87205; 93005; 93010; 93306; 94003; 94640; J0610; J1250; J1720; J2001; J2370; J2543; J3430; J3475; J3480; J3490; J7050; J7611; P9047